=== PATIENT | female | born 1945 | race Caucasian/White ===

== ENCOUNTER 2021-08-17 11:48 | Inpatient (IN) | payer MEDICARE, SELFPAY ==
[2021-08-17] VITALS (13 sets, daily range): BP systolic 120–237; BP diastolic 61–153; PULSE 71–109; RESP 18–27; TEMP 36.7–36.9; O2SAT 89–96; BMI 37.8
--- NOTE | 2021-08-17 11:49 | XR_ITS ---
WS: [id number] Exam: XR chest 1V portable [id number] Date/Time of Exam: 08/17/2021 11:53 AM Reason For Exam: dyspnea/cough No priors. Patchy groundglass infiltrates seen in the left lung base. Plaque atelectasis in the right base. Smal l left basal pleural effusion noted. Heart size is normal. Pulmonary vascularity is increased. The me diastinum is normal in contour. Regional bony elements are intact. Monitoring leads superimpose the c hest. XR/XR chest 1V portable [id number] IMPRESSION: 1. Left lower lobe infiltrate and small left basal pleural effusion. 2. Increased pulmonary vascularity. Plaque atelectasis in the right base.
--- NOTE | 2021-08-17 11:51 | ECG_ITS ---
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 Measurements Intervals [place] Rate: 93 P: 28 [place]: 157 QRS: 12 QRSD: 104 T: 30 QT: 345 QTc: 431 Interpretive Statements SINUS RHYTHM No previous ECG available for comparison Electronically Signed On 08-17-2021 15:21:06 CDT by Bob Lombardi M.D. [id number] f
[2021-08-17] MEDS: FUROsemide 10 mg/mL SDV 10mL 60 MG IVP (12:19)
--- NOTE | 2021-08-17 12:26 | ED_ITS ---
HPI - Chest Pain General: Chief Complaint: Chest Pain Stated Complaint: sob Time Seen by Provider: 08/17/21 11:49 Source: patient Mode of arrival: ambulatory History of Present Illness: 75-year-old female who presents to the emergency room via EMS with complaints of shortness of breath and difficulty breathing. She states she is having progressive worsening for the last several weeks which she has noticed increasing orthopnea. She is visiting here from [facility]. States she did not take any of her medications today she does usually take 40 mg of Lasix daily. States she has a history of COPD. complaint: chest heaviness and chest discomfort Onset (ago): day(s) Timing of current episode: episodic Prior episodes: Yes Onset: during rest Pain location: substernal and left chest Pain radiation: none Severity: mild Quality: heaviness Relieving factors: sitting upright Exacerbating factors: exertion and supine Associated symptoms: Reports dyspnea and leg edema; Deny abdominal pain, diaphoresis, fever(s), nausea, palpitations, sense of impending doom, syncope or vomiting Treatment prior to arrival: oxygen and other (DuoNebs) Review of Systems Const: Denies: fever(s), chills or diaphoresis ENMT: Denies: throat pain, ear or mastoid pain, nasal discharge or nasal congestion Card: Reports: chest pain, dyspnea on exertion and orthopnea; Denies: palpitations or syncope Resp: Reports: dyspnea, non-productive cough and wheezing GI: Denies: abdominal pain, nausea or vomiting : Denies: flank pain, difficulty voiding, dysuria, urinary frequency or urinary urgency Skin/Breast: Denies: rash or pruritus PFSH ED PFSH: Medical History (Updated 08/28/21 @ 19:30 by Rick Clarke DO) Anxiety CAD (coronary artery disease) CHF (congestive heart failure) COPD (chronic obstructive pulmonary disease) Depression Diabetes Hyperlipemia DONAVAN (obstructive sleep apnea) Surgical History H/O elbow surgery Hx of cataract surgery Stented coronary artery Family History Father CAD (coronary artery disease) Social History (Reviewed 08/17/21 @ 17:52 by KALEN Cummins Smoking and tobacco status: never smoked Second hand smoke exposure: Yes Smoking risk assessment/counseling performed?: No Alcohol intake: never Desire information about alcohol rehabilitation?: No Counseling given: No Desire information about substance/drug rehabilitation?: No Counseling given: No Lives independently: Yes Household members: spouse Marital status: Physical Exam Const: GENERAL APPEARANCE: cooperative and comfortable OR IENTATION/CONSCIOUSNESS: Yes awake, Yes oriented to person, Yes oriented to place and Yes oriented to time HENMT: COMMON NORMALS: normocephalic, atraumatic and hearing grossly normal bilaterally HEAD & SCALP: normocephalic and atraumatic Resp: EFFORT & INSPECTION: Yes abnormal respiratory pattern, Yes tachypneic, Yes pursed lip breathing and Yes labored AUSCULTATION: rhonchi and wheezes Cardio: COMMON NORMALS: regular rhythm and No murmurs present (Cardio) RHYTHM: regular rhythm GI: COMMON NORMALS: Soft to palpation and No hepatosplenomegaly present AUSCULTATION: Yes normoactive bowel sounds PALPATION: Yes Soft to palpation, No Tenderness to palpation present (GI), No Guarding due to palpation present (GI) and Yes No hepatosplenomegaly present Extremity: COMMON NORMALS: capillary refill normal and no calf tenderness GENERAL: Yes edema Neuro: SENSORIUM/ORIENTATION: Yes oriented to person, Yes oriented to place and Yes oriented to time Skin: COMMON NORMALS: no rashes or lesions noted GENERAL SKIN EXAM: no ra shes or lesions noted Course Vital Signs: Vital signs: Vital Signs Temperature 97.8 F 08/21/21 11:32 Pulse Rate 50 L 08/21/21 17:09 Respiratory Rate 11 L 08/21/21 17:09 Blood Pressure 105/65 08/21/21 17:09 Pulse Oximetry 99 08/21/21 17:09 MDM - Chest Pain Medical Decision Making Acute exacerbation of COPD with hypoxic and hypercapnic respiratory failure cover with antibiotics his chest x-ray looks like she may have pneumonia additionally continue BiPAP discussed with hospitalist orders written Medical Records I reviewed the patient's medical records. Lab Data I reviewed the patient's lab results. : 08/21/21 04:45 08/21/21 04:45 Radiology Impressions Chest X-Ray 08/21/21 08:50 IMPRESSION: Similar patchy left basilar airspace opacity with small left pleural effusion. Laboratory Results WBC 12.8 10^3/uL (4.0-10.0) H 08/17/21 15:24 RBC 3.95 10^6/uL (4.1-5.3) L 08/17/21 15:24 Hgb 10.0 g/dL (11.5-15.3) L 08/17/21 15:24 Hct 31.3 % (37.0-47.0) L 08/17/21 15:24 MCV 79.2 fl (81-99) L 08/17/21 15:24 MCH 25.3 pg (28.0-34.0) L 08/17/21 15:24 MCHC 31.9 g/dL (30.0-36.0) 08/17/21 15: RDW 15.7 % (12.1-15.1) H 08/17/21 15:24 Plt Count 245 10^3/cmm (130-400) 08/17/21 15: MPV 11.7 fL (7.4-10.4) H 08/17/21 15:24 Neut % (Auto) 91.1 % 08/17/21 15:24 Lymph % (Auto) 5.2 % 08/17/21 15:24 [place] % (Auto) 1.5 % 08/17/21 15: Eos % (Auto) 0.2 % 08/17/21 15:24 Baso % (Auto) 0.5 % 08/17/21 15:24 Neut # (Auto) 11.64 10^3/uL (1.8-7.7) H 08/17/21 15:24 Lymph # (Auto) 0.7 10^3/uL (0.8-4.8) L 08/17/21 15:24 [place] # (Auto) 0.2 10^3/uL (0.2-0.9) 08/17/21 15:24 Eos # (Auto) 0.0 10^3/uL (0.0-0.8) 08/17/21 15:24 Baso # (Auto) 0.1 10^3/uL (0.0-0.1) 08/17/21 15:24 Nucleated RBC % (auto) 0 % 08/17/21 15:24 Nucleated RBCs # 0.0 /100WBC 08/17/21 15:24 Specimen Type Arterial 08/17/21 12:27 Sample Site Brachial, right 08/17/21 12:27 ABG pH 7.29 (7.35-7.45) L 08/17/21 12:27 ABG pCO2 57.6 mmHg (35-45) H 08/17/21 12:27 ABG pO2 66.0 mmHg (80.0-100.0) L 08/17/21 12:27 ABG HCO3 27.6 mmol/L (22-26) H 08/17/21 12:27 ABG O2 Saturation 89.5 08/17/21 12:27 ABG Base Excess 0.3 mmol/L (-2.0-2.0) 08/17/21 12:27 [place] Test N/a 08/17/21 12:27 A-a O2 Gradient 15.8 mmHg (5-10) H 08/17/21 12:27 Hematocrit 30.9 % (37-47) L 08/17/21 12:27 Hgb O2 Saturation 87.7 % (95-100) L 08/17/21 12:27 Carboxyhemoglobin 1.5 %THgb (0.4-20.1) 08/17/21 12:27 Methemoglobin 0.4 % (0.4-1.5) 08/17/21 12:27 Total Hemoglobin 10.1 g/dL (12-16) L 08/17/21 12:27 Sodium 140.0 mmol/L (131-143) 08/17/21 12:27 Potassium 4.6 mmol/L (3.5-5.0) 08/17/21 12:27 Glucose 101.0 mg/dL (70-115) 08/17/21 12:27 Ionized Calcium 1.2 mmol/L (1.1-1.4) 08/17/21 12:27 O2 Delivery Device Nc 08/17/21 12:27 O2 Liters/Min 4.0 % 08/17/21 12:27 FiO2 36.0 % 08/17/21 12:27 Dispatcher Service Or Work ID Amh 08/17/21 12:27 Sodium 135 mmol/L (136-145) L 08/17/21 15:24 Potassium 4.8 mmol/L (3.5-5.1) 08/17/21 15:24 Chloride 100 mmol/L (98-107) 08/17/21 15:24 Carbon Dioxide 21 mmol/L (22-29) L 08/17/21 15:24 Anion Gap 18.8 (5-19) 08/17/21 15:24 BUN 18 mg/dL (8-23) 08/17/21 15:24 Creatinine 0.7 mg/dL (0.5-0.9) 08/17/21 15:24 GFR Calculation Not Reportable 08/17/21 15:24 Glucose 128 mg/dL (65-115) H 08/17/21 15:24 Calculated Osmolality 284 mOsm/kg (285-295) L 08/17/21 15:24 Calcium 8.8 mg/dL (8.5-10.5) 08/17/21 15:24 Total Bilirubin 0.3 mg/dL (0.15-1.2) 08/17/21 15:24 AST 13 U/L (0-32) 08/17/21 15:24 ALT 12 U/L (0-33) 08/17/21 15:24 Alkaline Phosphatase 106 IU/L (35-105) H 08/17/21 15:24 Troponin T Baseline 16 ng/L (0-10) H 08/17/21 15:24 NT-Pro-B Natriuret Pep 1621 pg/mL (0-450) H 08/17/21 15:24 Total Protein 7.2 g/dL (6.6-8.7) 08/17/21 15:24 Albumin 3.8 g/dL (3.5-5.2) 08/17/21 15:24 Globulin 3.4 g/dL (1.3-4.6) 08/17/21 15:24 Discharge Plan Discharge Patient Disposition: Admitted As Inpatient Admit Provider: Jon Hilario Clinical Impression: Acute on chronic respiratory failure with hypoxia and hypercapnia, Pneumonia, Congestive heart failure Condition: Stable Discharge Diet: Cardiac and Diabetic Discharge Activity: Increase activity as tolerated, As per PT/OT instructions, Oxygen as instructed and Cpap/Bipap as instructed Coding Level of Care Code ED Online Advertising Manager for Chg Fwd Exam Detailed
[2021-08-17 12:38] LABS: ABG PCO2 57.6 mmHg (35-45); ABG PH Result 7.29 (7.35-7.45); Alveolar-Arterial Oxygen Gradi 15.8 mmHg (5-10); Arterial Blood Gas Hematocrit 30.9 % (37-47); Base Excess ABG 0.3 mmol/L (-2.0-2.0); Blood Gas Operator Identificat AMH; Blood Gas Sample Site Brachial, right; Blood Gas Sample Type Arterial; Carboxyhemoglobin 1.5 %THgb (0.4-20.1); HCO3 ABG 27.6 mmol/L (22-26); HGB O2 Sat 87.7 % (95-100); Ionized Calcium Level - ABG 1.2 mmol/L (1.1-1.4); Methemoglobin 0.4 % (0.4-1.5); Oxygen Device NC; Oxygen Saturation ABG 89.5; Potassium Level - ABG 4.6 mmol/L (3.5-5.0); Total Hemoglobin 10.1 g/dL (12-16)
[2021-08-17] MEDS: hyDRALAzine 20 mg/mL INJ 1 mL IVP (13:02)
--- NOTE | 2021-08-17 14:13 | ECG_ITS ---
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 Measurements Intervals [place] Rate: 85 P: 31 [place]: 157 QRS: 11 QRSD: 99 T: 31 QT: 370 QTc: 442 Interpretive Statements SINUS RHYTHM Compared to ECG 08/17/2021 11:53:21 No significant changes Electronically Signed On 08-17-2021 15:25:38 CDT by Bob Lombardi M.D. [id number]
--- NOTE | 2021-08-17 14:14 | PC.NURSE ---
EKG done and shown to ER doctor
[2021-08-17 15:39] LABS: Basophils # 0.1 10^3/uL (0.0-0.1); Basophils % 0.5 %; Eosinophils % 0.2 %; Hematocrit 31.3 % (37.0-47.0); Lymphocytes # 0.7 10^3/uL (0.8-4.8); Lymphocytes % 5.2 %; Mean Corpuscular HGB Conc 31.9 g/dL (30.0-36.0); Mean Corpuscular Hemoglobin 25.3 pg (28.0-34.0); Mean Corpuscular Volume 79.2 fl (81-99); Mean Platelet Volume 11.7 fL (7.4-10.4); Monocytes # 0.2 10^3/uL (0.2-0.9); Monocytes % 1.5 %; Neutrophils # 11.64 10^3/uL (1.8-7.7); Neutrophils % 91.1 %; Nucleated Red Blood Cells % 0 %; Platelet Count 245 10^3/cmm (130-400); Red Blood Count 3.95 10^6/uL (4.1-5.3); Red Cell Distribution Width 15.7 % (12.1-15.1); White Blood Count 12.8 10^3/uL (4.0-10.0)
[2021-08-17 16:08] LABS: Alanine Aminotransferase 12 U/L (0-33); Albumin Level 3.8 g/dL (3.5-5.2); Alkaline Phosphatase 106 IU/L (35-105); Anion Gap 18.8 (5-19); Aspartate Amino Transferase 13 U/L (0-32); Blood Urea Nitrogen 18 mg/dL (8-23); Calcium 8.8 mg/dL (8.5-10.5); Carbon Dioxide 21 mmol/L (22-29); Chloride 100 mmol/L (98-107); Creatinine Clr Calc Pharmacy 67.6218; Globulin 3.4 g/dL (1.3-4.6); Glucose 128 mg/dL (65-115); NT Pro B Type Natriuretic Pept 1621 pg/mL (0-450); Osmolality Calculated 284 mOsm/kg (285-295); Potassium 4.8 mmol/L (3.5-5.1); Sodium 135 mmol/L (136-145); Total Bilirubin 0.3 mg/dL (0.15-1.2); Total Protein 7.2 g/dL (6.6-8.7)
[2021-08-17 16:09] LABS: Troponin(5th) Baseline 16 ng/L (0-10)
[2021-08-17] MEDS: levofloxacin-dextrose 5 % 750 MG/150 ML PREMIX 100 MG IV (16:33)
--- NOTE | 2021-08-17 17:39 | P.HP_ITS ---
Providers/Chief Complaint Primary Care Provider: LEWIS Thomas Chief Complaint: sob History of Present Illness Very pleasant 75-year-old lady with history of COPD, chronically on 2 L of oxygen nasal cannula, nightly on CPAP due to DONAVAN, he is visiting here from [place] where she normally lives with her , did not bring her oxygen, and has been progressively getting more short of breath to the point that she has not been able to make it to the bathroom with exertion, has been having productive cough, in emergency room found to require more oxygen than usual, with respiratory acidosis, 7.29/37.6/66 on 4 L nasal cannula, was started on BiPAP support. Chest imaging showing left lower lobe infiltrate and small left basal pleural effusion. Increased pulmonary vascularity. Black atelectasis in right base. She denies significant lower extremity edema for which she takes Lasix. Denies chest pain or pressure with exertion, although says did have feeling of elephant sitting on her lower chest while watching TV. No such feeling currently. Reports has history of coronary disease with stenting x2. Review of Systems Const: Denies: fever(s), chills, body aches or malaise Eyes: Denies: change in vision, eye discomfort or eye redness ENMT: Denies: throat pain, oral sores or ear or mastoid pain Card: Reports: edema, dyspnea on exertion and other (chest heaviness episode at rest); Denies: chest pain or pre-syncope Resp: Reports: dyspnea, productive cough and pain on inspiration; Denies: change in phlegm color or hemoptysis GI: Denies: abdominal pain, nausea, vomiting, diarrhea, constipation, hematochezia or melena : Denies: flank pain, urinary frequency or hematuria Musc: Denies: back pain, joint swelling or joint redness Skin/Breast: Denies: rash or new lesions Neuro: Denies: headache(s), numbness in extremities, weakness in extremities, dizziness, confusion or seizure-like activity Endo: Denies: polyuria or polydipsia John/Lymph: Denies: easy bleeding or tender lymph nodes All/Imm: Denies: urticaria or tongue swelling Medications/Allergies Home Medications Medication Instructions Recorded Confirmed Last Taken Type albuterol sulfate 90 mcg/actuation 1 inh INHALATION QID PRN 12/10/19 08/17/21 Unknown History aerosol inhaler (ProAir HFA) atorvastatin 40 mg tablet 40 mg PO DAILY 12/10/19 08/17/21 08/16/21 History bupropion HCl 150 mg tablet,12 hr 150 mg PO BID 12/10/19 08/17/21 08/16/21 History sustained-release (Wellbutrin SR) celecoxib 200 mg capsule (Celebrex) 200 mg PO DAILY 12/10/19 08/17/21 08/16/21 History furosemide 40 mg tablet (Lasix) 40 mg PO DAILY 12/10/19 08/17/21 08/16/21 History gabapentin 600 mg tablet 600 mg PO TID 12/10/19 08/17/21 08/16/21 History lansoprazole 30 mg capsule,delayed 30 mg PO DAILY 12/10/19 08/17/21 08/16/21 History release lisinopril 40 mg tablet 40 mg PO DAILY 12/10/19 08/17/21 08/16/21 History metformin 500 mg tablet 500 mg PO BID 12/10/19 08/17/21 08/16/21 History metoprolol tartrate 50 mg tablet 50 mg PO BID 12/10/19 08/17/21 08/16/21 History potassium chloride 10 mEq 10 meq PO DAILY 12/10/19 08/17/21 08/16/21 History tablet,extended release(part/cryst) (Klor-Con M) zolpidem 10 mg tablet 10 mg PO BEDTIME PRN 12/10/19 08/17/21 Unknown History folic acid 1 mg tablet 1 mg PO DAILY 08/17/21 08/17/21 08/16/21 History memantine 10 mg tablet 10 mg PO DAILY 08/17/21 08/17/21 08/16/21 History Allergies Allergy/AdvReac Type Severity Reaction Status Date / Time aspirin Allergy Intermediate rash Verified 12/10/19 14:31 red dye Allergy ADR-Itching Verified 08/17/21 11:51 PFSH Acute PFSH: Medical History (Updated 08/17/21 @ 17:57 by Jon Hilario MD) Anxiety CAD (coronary artery disease) COPD (chronic obstructive pulmonary disease) Depression Diabetes Hyperlipemia DONAVAN (obstructive sleep apnea) Surgical History H/O elbow surgery Hx of cataract surgery Stented coronary artery Family History Father CAD (coronary artery disease) Social History Smoking and tobacco status: never smoked Second hand smoke exposure: Yes Smoking risk assessment/counseling performed?: No Alcohol intake: never Desire information about alcohol rehabilitation?: No Counseling given: No Desire information about substance/drug rehabilitation?: No Counseling given: No Lives independently: Yes Household members: spouse Marital status: Vitals/I&O/Wt Last Vital Signs Temp 98.4 F 08/17/21 12:04 Pulse 71 08/17/21 15:47 Resp 18 08/17/21 15:15 BP 120/62 08/17/21 15:15 Pulse Ox 91 08/17/21 15:47 Weight last 48 hrs Weight 99.79 kg Physical Exam Narrative: BiPAP Const: COMMON NORMALS: alert GENERAL APPEARANCE: cooperative NUTRITIONAL APPEARANCE: obese ORIENTATION/CONSCIOUSNESS: Yes awake HENMT: COMMON NORMALS: normocephalic, EAC's normal, Normal external nose present and moist oral mucous membranes HEAD & SCALP: normocephalic NOSE: Normal external nose present EXTERNAL AUDITORY CANAL: EAC's normal Neck/C-Spine: COMMON NORMALS: no meningeal signs Chest: CHEST: Yes Symmetrical chest wall rise Resp: AUSCULTATION: diminished lung sounds Cardio: COMMON NORMALS: regular rate, regular rhythm and No murmurs present (Cardio) RATE: regular rate RHYTHM: regular rhythm GI: COMMON NORMALS: Normal to inspection, nondistended, normoactive bowel sounds present, Soft to palpation and non-tender PALPATION: Yes Soft to palpation Extremity: COMMON NORMALS: no pedal edema Neuro: COMMON NORMALS: moves all extremities SENSORIUM/ORIENTATION: Yes alert MENINGEAL SIGNS: Yes no meningeal signs Psych: COMMON NORMALS: mental status grossly normal Skin: COMMON NORMALS: no wounds RASHES: no rashes Data : 08/17/21 15:24 08/17/21 15:24 A&P Assessment and plan (1) Respiratory failure with hypoxia and hypercapnia: COPD exacerbation and community-acquired pneumonia. Continue BiPAP support. Wean off as tolerating. Normally on 2 L oxygen, here now requiring at least 4. Continue Levaquin, breathing treatments, discussed with her also IV steroid. Collect sputum culture, bacterial antigens. Check COVID-19. Status: Acute (2) CAP (community acquired pneumonia): As above Status: Acute (3) Respiratory acidosis: As above Status: Acute (4) CHF (congestive heart failure): Lasix. Assess TTE. Complete troponin EKG series. Status: Acute (5) Chest heaviness: Atypical chest discomfort at home while resting, more so pleuritic discomfort, but at one time did feel like an elephant was sitting on her chest. Has not been using her oxygen which she did not bring with her from [place]. Possibly secondary to hypoxia. Does have history of CAD. Complete troponin EKG series. Assess TTE. Continue cardiac medications. Status: Acute (6) DONAVAN (obstructive sleep apnea): At home usually uses CPAP Status: Acute Plan Diabetes HLD CAD Attestations Medical Necessity Statement*: Admission of over 2 midnights is anticipated for assessment and management of respiratory failure with hypoxia and hypercapnia, community-acquired pneumonia and COPD exacerbation, additional assessment of episode of chest heaviness in a lady with underlying CAD. Coding Level of Care Code Acute Precision Lens Generator for [facility] Fwd Diagnoses Respiratory failure with hypoxia and hypercapnia J96.91; J96.92 DONAVAN (obstructive sleep apnea) G47.33 CAP (community acquired pneumonia) J18.9 Respiratory acidosis E87.2 CHF (congestive heart failure) I50.9 Chest heaviness R07.89
[2021-08-17 18:13] LABS: Troponin 5 2HR 14.17 ng/L (0-10)
--- NOTE | 2021-08-17 18:13 | ECG_ITS ---
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 Measurements Intervals [place] Rate: 90 P: 38 [place]: 147 QRS: 11 QRSD: 100 T: 16 QT: 370 QTc: 455 Interpretive Statements SINUS RHYTHM POSSIBLE ANTERIOR MYOCARDIAL INFARCTION , PROBABLY OLD [30 ms Q WAVE IN V3/V4, OR R < 0.2 mV IN V4] Compared to ECG 08/17/2021 14:08:38 Myocardial infarct finding now present Electronically Signed On 08-18-2021 17:03:11 CDT by Korey Grace M.D. [id number]
[2021-08-17 18:16] LABS: Troponin 5 2HR Delta -1.83 ABS# (0-10)
--- NOTE | 2021-08-17 20:50 | PC.NURSE ---
Patient gave permission to give information to
[2021-08-17 21:05] LABS: Adenovirus Not Detected (NOT DETECT); Chlamydia Pneumoniae Not Detected (NOT DETECT); Coronavirus 229E,HKU1,NL63,OC4 Not Detected (NOT DETECT); Human Metapneumovirus Not Detected (NOT DETECT); Human Rhinovirus/Enterovirus Not Detected (NOT DETECT); Influenza A Not Detected (NOT DETECT); Influenza A H1 Not Detected (NOT DETECT); Influenza A H1-2009 Not Detected (NOT DETECT); Influenza A H3 Not Detected (NOT DETECT); Influenza B Not Detected (NOT DETECT); Mycoplasma Pneumoniae Not Detected (NOT DETECT); Parainfluenza Virus Type 1 Not Detected (NOT DETECT); Parainfluenza Virus Type 2 Not Detected (NOT DETECT); Parainfluenza Virus Type 3 Not Detected (NOT DETECT); Parainfluenza Virus Type 4 Not Detected (NOT DETECT); Respiratory Syncytial Virus A Not Detected (NOT DETECT); Respiratory Syncytial Virus B Not Detected (NOT DETECT); SARS-COV-2 Not Detected (NOT DETECT)
[2021-08-17] MEDS: pantoprazole DR 40 mg Tablet PO (21:33)
[2021-08-17] MEDS: enoxaparin 40 mg/0.4 mL Syringe SUBCUT (21:33)
[2021-08-17] MEDS: cetirizine 10 mg Tablet PO (21:33)
[2021-08-17] MEDS: gabapentin 300 mg Capsule 600 MG PO (21:33)
[2021-08-17] MEDS: acetaminophen 325 mg Tablet 650 MG PO (21:34)
[2021-08-17] MEDS: ipratropium-albuterol 3 mL Neb INHALATION (22:12)
[2021-08-17 22:26] LABS: Troponin 5 6HR 12.58 ng/L (0-10)
[2021-08-17 22:32] LABS: Troponin 5 6HR Delta -3.42 ng/L (0-12)
[2021-08-18] VITALS (18 sets, daily range): BP systolic 119–157; BP diastolic 57–84; PULSE 62–92; RESP 17–20; TEMP 36.4–37.4; O2SAT 89–97
[2021-08-18] MEDS: ipratropium-albuterol 3 mL Neb INHALATION ×4 (02:17→20:49)
--- NOTE | 2021-08-18 02:21 | USCV_ITS ---
Kendal Felix Age: 75 Gender: F : 1945 Exam Date: 08/18/2021 02:20 Ordering Phys: Jon Hilario MD Technologist: ALCIRA [place] [facility] [place]: CHF / Resp Failure BP: / HR: 76 Rhythm: Sinus Technical Quality: Adequate MEASUREMENTS (Male / Female) Normal Values 2D ECHO LV Diastolic Diameter PLAX 3.6 cm 4.2 - 5.9 / 3.9 - 5.3 cm LV Systolic Diameter PLAX 2.3 cm IVS Diastolic Thickness 1.5 cm 0.6 - 1.0 / 0.6 - 0.9 cm IVS Systolic Thickness 1.7 cm LVPW Diastolic Thickness 2.1 cm 0.6 - 1.0 / 0.6 - 0.9 cm LVPW Systolic Thickness 2.2 cm LVOT Diameter 1.8 cm LV Ejection Fraction 2D Teich 70.7 % LA Diameter 4.2 cm LA Width 3.4 cm LA Height 4.9 cm RA Width 4.1 cm RA Height 4.7 cm Aorta at Sinotubular Diameter 2.4 cm IVC Diameter 2.3 cm M-MODE Aortic Annulus Diameter 2.1 cm LA Ao Ratio MM 1.9 DOPPLER AV Peak Velocity 126.0 cm/s LVOT Peak Velocity 89.0 cm/s AV Area Cont Eq vti 1.6 cm squared AV Area Cont Eq pk 1.8 cm squared MV Peak Velocity 99.0 cm/s MV Area PHT 3.7 cm squared Mitral E to A Ratio 0.8 MV E' Velocity 41.0 cm/s Mitral E to MV E' Ratio 11.3 Mitral E to LV E' Lateral Ratio 14.0 Mitral E to LV E' Septal Ratio 9.6 TR Peak Velocity 243.8 cm/s TR Peak Gradient 23.8 mmHg TR Mean Velocity 170.3 cm/s TR Mean Gradient 14.1 mmHg TR Velocity Time Integral 73.8 cm Right Atrial Pressure 10.0 mmHg Pulmonary Artery Systolic Pressu 33.8 mmHg PV Peak Velocity 121.0 cm/s RV Acceleration Time 0.1 s RV Ejection Time 0.3 s RV AcT/ET 0.3 FINDINGS Left Ventricle This is technically very limited quality echocardiogram because of poor ultrasonic windows. Grossly LV systolic function is grossly normal. Accurate assessment of regional wall motion abnormalities cannot be done because of limited visualization Right Ventricle Not well-visualized Right Atrium Not well-visualized Left Atrium Not well-visualized Mitral Valve Not well-visualized Aortic Valve Not well-visualized Tricuspid Valve Not well-visualized. Trace tricuspid regurgitation Pulmonic Valve Not visualized Pericardium Grossly normal Aorta Grossly normal IVC CONCLUSIONS This is technically very limited quality echocardiogram because of poor ultrasonic windows. LV systolic function is grossly normal. Accurate assessment of regional wall motion abnormalities cannot be done because of limited visualization. Weighted structures are not well visualized. No comparison studies are available Korey Grace MD (Electronically Signed) Final Date: 18 August 2021 16:45 S
[2021-08-18] MEDS: FUROsemide 10 mg/mL SDV 4mL 40 MG IVP ×2 (03:19→16:45)
[2021-08-18 06:35] LABS: Basophils % 0.2 %; Hematocrit 31.2 % (37.0-47.0); Hemoglobin 9.2 g/dL (11.5-15.3); Lymphocytes # 0.6 10^3/uL (0.8-4.8); Lymphocytes % 5.2 %; Mean Corpuscular HGB Conc 29.5 g/dL (30.0-36.0); Mean Corpuscular Hemoglobin 25.1 pg (28.0-34.0); Mean Platelet Volume 11.8 fL (7.4-10.4); Monocytes # 0.2 10^3/uL (0.2-0.9); Monocytes % 1.6 %; Neutrophils # 10.24 10^3/uL (1.8-7.7); Neutrophils % 91.4 %; Nucleated Red Blood Cells % 0 %; Platelet Count 252 10^3/cmm (130-400); Red Blood Count 3.67 10^6/uL (4.1-5.3); Red Cell Distribution Width 15.9 % (12.1-15.1); White Blood Count 11.2 10^3/uL (4.0-10.0)
[2021-08-18 06:59] LABS: Alanine Aminotransferase 9 U/L (0-33); Alkaline Phosphatase 93 IU/L (35-105); Aspartate Amino Transferase 12 U/L (0-32); Blood Urea Nitrogen 24 mg/dL (8-23); Calcium 8.2 mg/dL (8.5-10.5); Carbon Dioxide 24 mmol/L (22-29); Chloride 98 mmol/L (98-107); Globulin 2.4 g/dL (1.3-4.6); Glucose 209 mg/dL (65-115); Osmolality Calculated 292 mOsm/kg (285-295); Sodium 136 mmol/L (136-145); Total Bilirubin 0.3 mg/dL (0.15-1.2); Total Protein 6.4 g/dL (6.6-8.7)
[2021-08-18 07:00] LABS: Anion Gap 19.3 (5-19); Potassium 5.3 mmol/L (3.5-5.1)
[2021-08-18] MEDS: pantoprazole DR 40 mg Tablet PO (10:07)
[2021-08-18] MEDS: memantine 5 mg tablet 10 MG PO (10:07)
[2021-08-18] MEDS: atorvastatin 40 mg Tablet PO (10:07)
[2021-08-18] MEDS: metoprolol tartrate 50 mg Tablet PO ×2 (10:07→18:12)
[2021-08-18] MEDS: gabapentin 300 mg Capsule 600 MG PO ×3 (10:08→21:47)
[2021-08-18] MEDS: folic acid 1 mg Tablet PO (10:08)
[2021-08-18] MEDS: buPROPion SR (12 HR) 150 mg Tablet PO ×2 (10:16→18:13)
--- NOTE | 2021-08-18 11:57 | PC.CHAP ---
Pastoral Care Encounter/Spiritual Assessment Type of Contact [] Declined brim rounder visit [] Patient/Family/Request visit [] Outpatient visit [] Follow-up visit [] Physician referral [] Code/Alert [x] Routine visit [] Staff referral [] Actively dying [] Patient sleeping [] Family support [] [] Out of room [] Palliative care [] [] Receiving care in room [] Pre-surgical visit [] Trauma [] Long length of stay [] ICU visit [] Other: Relational/Emotional Strength [x] Patient feels connected with others/family/visitors/staff [] Distress [] Loneliness/isolation [] Abandonment Spirituality of Patient [x] Person of Nury [x] Attends Yarsani of their Nury [x] Believes in Prayer [] Reads Bible or Yazdanism materials [] There are Spiritual issues to be addressed Tip Scourer Interventions [x] Prayer [x] Active listening [x] Non-anxious presence [x] Spiritual/emotional support [] Crisis/trauma care [] Spiritual counseling [] Bereavement support [] Provided bereavement packet [] Provided Bible/devotional materials [] Provided toy/stuffed animal, coloring book to patient or family member [] Provided Communion [] Anointing/[place] [] Salvation [x] Completed spiritual assessment [] Other: Impact on Illness or Injury [] Angry [] Fearful [] Anxious [] Often cries [] Exhaustion [] Unable to work [] Unable to attend tenriism [] Unable to walk/stand [] Unable to read [] Unable to drive [] Unable to eat/drink [] Unable to sleep [] Unable to be with family [] Patient intubated [] Other: Summary Time spent with patient
[2021-08-18] MEDS: levofloxacin-dextrose 5 % 750 MG/150 ML PREMIX 100 MG IV (15:15)
--- NOTE | 2021-08-18 17:57 | P.PN_ITS ---
Subjective Subjective: Today she is feeling a little bit better. Transitioned off of BiPAP to nasal cannula. Requesting advancement of diet. She still coughing. No nausea or vomiting. Vitals/I&O/Wt Last Vital Signs Temp 97.8 F 08/18/21 15:40 Pulse 75 08/18/21 15:40 Resp 18 08/18/21 15:40 BP 129/60 08/18/21 15:40 Pulse Ox 91 08/18/21 15:40 08/18/21 08/18/21 08/18/21 06:59 14:59 22:59 Intake Total 720 / 720 150 / 870 Output Total 1150 / 1150 1600 / 1600 Balance -1150 / -1000 -880 / -880 150 / -730 Weight last 48 hrs Weight 108.635 kg Weight 99.79 kg Physical Exam Const: COMMON NORMALS: alert GENERAL APPEARANCE: cooperative NUTRITIONAL APPEARANCE: obese ORIENTATION/CONSCIOUSNESS: Yes awake HENMT: COMMON NORMALS: normocephalic, EAC's normal, Normal external nose present and moist oral mucous membranes HEAD & SCALP: normocephalic NOSE: Normal external nose present EXTERNAL AUDITORY CANAL: EAC's normal Neck/C-Spine: COMMON NORMALS: no meningeal signs Chest: CHEST: Yes Symmetrical chest wall rise OTHER: Better air entry, diminished on L Resp: AUSCULTATION: diminished lung sounds Cardio: COMMON NORMALS: regular rate, regular rhythm and No murmurs present (Cardio) RATE: regular rate RHYTHM: regular rhythm GI: COMMON NORMALS: Normal to inspection, nondistended, normoactive bowel sounds present, Soft to palpation and non-tender PALPATION: Yes Soft to palpation Extremity: COMMON NORMALS: no pedal edema Neuro: COMMON NORMALS: moves all extremities SENSORIUM/ORIENTATION: Yes alert MENINGEAL SIGNS: Yes no meningeal signs Psych: COMMON NORMALS: mental status grossly normal Skin: COMMON NORMALS: no wounds RASHES: no rashes Data : 08/18/21 05:23 08/18/21 05:23 Micro: Microbiology 08/17/21 21:18 MRSA Culture - Final Nose 08/18/21 04:50 Legionella Urinary Antigen - Final Urine,Voided Bacterial Antigens - Final A&P Assessment and plan (1) Respiratory failure with hypoxia and hypercapnia: Feeling bit better. Slightly better air entry on exam. Transition to 6 L nasal cannula oxygen from BiPAP. Decrease steroid. Urine bacterial antigens negative including Legionella. MRSA PCR negative. Negative COVID PCR. COPD exacerbation and community-acquired pneumonia. Normally on 2 L oxygen, here now requiring at least 4. Continue Levaquin, breathing treatments, IV steroid. Trial of advancement of diet Status: Acute (2) CAP (community acquired pneumonia): As above Status: Acute (3) Respiratory acidosis: As above Status: Acute (4) CHF (congestive heart failure): Lasix. Monitor I&O. Very limited quality TTE. No further chest pain or pressure. Troponin series without rise. Noncontributory EKG. Status: Acute (5) Chest heaviness: Atypical chest discomfort at home while resting, more so pleuritic discomfort, but at one time did feel like an elephant was sitting on her chest. Has not been using her oxygen which she did not bring with her from [place]. Possibly secondary to hypoxia. Does have history of CAD. Discussed with her consideration of possible stress testing after recovers from acute illness. Last time she had a stress test was about 3 years ago. Status: Acute (6) DONAVAN (obstructive sleep apnea): At home usually uses CPAP Status: Acute Plan Hyperkalemia: Change diet to low potassium. Hold lisinopril. Hold potassium supplement. Follow-up potassium level. Diabetes HLD CAD Attestations Medical Necessity Statement*: Continue admission for assessment of management of community-acquired pneumonia and severe COPD exacerbation. Coding Level of Care Code Acute Bilingual Inside Sales Representative for [facility] Fwd Exam Comprehensive Diagnoses Respiratory failure with hypoxia and hypercapnia J96.91; J96.92 CAP (community acquired pneumonia) J18.9 Respiratory acidosis E87.2 CHF (congestive heart failure) I50.9 Chest heaviness R07.89 DONAVAN (obstructive sleep apnea) G47.33
[2021-08-18] MEDS: enoxaparin 40 mg/0.4 mL Syringe SUBCUT (21:46)
[2021-08-18] MEDS: cetirizine 10 mg Tablet PO (21:47)
[2021-08-18 22:20] LABS: Glucose Point of Care 161 mg/dL (70-110)
[2021-08-19] VITALS (16 sets, daily range): BP systolic 109–177; BP diastolic 58–92; PULSE 61–93; RESP 14–24; TEMP 36.6–37.2; O2SAT 90–96
[2021-08-19] MEDS: acetaminophen 325 mg Tablet 650 MG PO (02:30)
[2021-08-19] MEDS: ipratropium-albuterol 3 mL Neb INHALATION ×3 (02:36→20:46)
[2021-08-19 05:15] LABS: Basophils % 0.1 %; Hematocrit 29.2 % (37.0-47.0); Hemoglobin 8.7 g/dL (11.5-15.3); Lymphocytes # 0.9 10^3/uL (0.8-4.8); Lymphocytes % 7.6 %; Mean Corpuscular HGB Conc 29.8 g/dL (30.0-36.0); Mean Corpuscular Hemoglobin 24.9 pg (28.0-34.0); Mean Corpuscular Volume 83.7 fl (81-99); Mean Platelet Volume 11.3 fL (7.4-10.4); Monocytes # 0.7 10^3/uL (0.2-0.9); Monocytes % 5.4 %; Neutrophils # 10.51 10^3/uL (1.8-7.7); Neutrophils % 86.1 %; Nucleated Red Blood Cells % 0 %; Platelet Count 298 10^3/cmm (130-400); Red Blood Count 3.49 10^6/uL (4.1-5.3); Red Cell Distribution Width 16.1 % (12.1-15.1); White Blood Count 12.2 10^3/uL (4.0-10.0)
[2021-08-19] MEDS: FUROsemide 10 mg/mL SDV 4mL 40 MG IVP ×2 (05:34→17:22)
[2021-08-19 05:38] LABS: Alanine Aminotransferase 8 U/L (0-33); Albumin Level 3.7 g/dL (3.5-5.2); Alkaline Phosphatase 75 IU/L (35-105); Blood Urea Nitrogen 28 mg/dL (8-23); Carbon Dioxide 28 mmol/L (22-29); Chloride 100 mmol/L (98-107); Globulin 2.9 g/dL (1.3-4.6); Glucose 154 mg/dL (65-115); Osmolality Calculated 297 mOsm/kg (285-295); Sodium 139 mmol/L (136-145); Total Bilirubin 0.2 mg/dL (0.15-1.2); Total Protein 6.6 g/dL (6.6-8.7)
[2021-08-19 05:47] LABS: Anion Gap 16.2 (5-19); Aspartate Amino Transferase 11 U/L (0-32); Potassium 5.2 mmol/L (3.5-5.1)
[2021-08-19 06:59] LABS: Glucose Point of Care 241 mg/dL (70-110)
[2021-08-19] MEDS: metoprolol tartrate 50 mg Tablet PO ×2 (09:20→17:23)
[2021-08-19] MEDS: memantine 5 mg tablet 10 MG PO (09:21)
[2021-08-19] MEDS: pantoprazole DR 40 mg Tablet PO (09:21)
[2021-08-19] MEDS: atorvastatin 40 mg Tablet PO (09:21)
[2021-08-19] MEDS: gabapentin 300 mg Capsule 600 MG PO ×3 (09:21→20:26)
[2021-08-19] MEDS: folic acid 1 mg Tablet PO (09:21)
[2021-08-19] MEDS: buPROPion SR (12 HR) 150 mg Tablet PO ×2 (09:21→17:53)
[2021-08-19 10:58] LABS: Glucose Point of Care 268 mg/dL (70-110)
[2021-08-19] MEDS: levofloxacin-dextrose 5 % 750 MG/150 ML PREMIX 100 MG IV (15:32)
[2021-08-19] MEDS: insulin lispro 100 unit/1 mL SUBCUT ×2 (17:22→21:03)
[2021-08-19 18:00] LABS: Glucose Point of Care 339 mg/dL (70-110)
--- NOTE | 2021-08-19 19:11 | PM.PN ---
Subjective Subjective: She is overall doing slightly better. Subjectively improving, although still needing 6 L nasal cannula oxygen. No recurrence of any chest pain or pressure episodes since admission. Appetite is good, tolerating advanced diet, states had a very good breakfast. Tells me her glucose is not usually this elevated. Vitals/I&O/Wt Last Vital Signs Temp 98.9 F 08/19/21 15:53 Pulse 80 08/19/21 15:53 Resp 14 08/19/21 15:53 BP 145/78 08/19/21 15:53 Pulse Ox 93 08/19/21 15:53 08/19/21 08/19/21 08/19/21 06:59 14:59 22:59 Intake Total 480 / 480 150 / 630 Output Total 600 / 4100 1600 / 1600 Balance -600 / -2870 -1120 / -1120 150 / -970 Weight last 48 hrs Weight 108.771 kg Weight 108.635 kg Physical Exam Narrative: NC Const: COMMON NORMALS: alert GENERAL APPEARANCE: cooperative NUTRITIONAL APPEARANCE: obese ORIENTATION/CONSCIOUSNESS: Yes awake OTHER: Sitting up in bed. Pleasant, conversant. HENMT: COMMON NORMALS: normocephalic, EAC's normal, Normal external nose present and moist oral mucous membranes HEAD & SCALP: normocephalic NOSE: Normal external nose present EXTERNAL AUDITORY CANAL: EAC's normal Neck/C-Spine: COMMON NORMALS: no meningeal signs Chest: CHEST: Yes Symmetrical chest wall rise OTHER: Improving air entry. No wheezing. Resp: AUSCULTATION: diminished lung sounds Cardio: COMMON NORMALS: regular rate, regular rhythm and No murmurs present (Cardio) RATE: regular rate RHYTHM: regular rhythm GI: COMMON NORMALS: Normal to inspection, nondistended, normoactive bowel sounds present, Soft to palpation and non-tender PALPATION: Yes Soft to palpation Extremity: COMMON NORMALS: no pedal edema Neuro: COMMON NORMALS: moves all extremities SENSORIUM/ORIENTATION: Yes alert MENINGEAL SIGNS: Yes no meningeal signs Psych: COMMON NORMALS: mental status grossly normal Skin: COMMON NORMALS: no wounds RASHES: no rashes Data : 08/19/21 04:40 08/19/21 04:40 A&P Assessment and plan (1) Respiratory failure with hypoxia and hypercapnia: Further decrease IV steroid dose to 20 mg. Had to add sliding scale insulin due to significant blood glucose elevation. Continue oxygen support, wean down as tolerating. Urine bacterial antigens negative including Legionella. MRSA PCR negative. Negative COVID PCR. COPD exacerbation and community-acquired pneumonia. Normally on 2 L oxygen. Continue Levaquin, breathing treatments, IV steroid. Status: Acute (2) CAP (community acquired pneumonia): As above Status: Acute (3) Respiratory acidosis: As above Status: Acute (4) CHF (congestive heart failure): Decrease to daily Lasix. Monitor I&O. Very limited quality TTE. No further chest pain or pressure. Troponin series without rise. Noncontributory EKG. Status: Acute (5) Chest heaviness: Atypical chest discomfort at home while resting, more so pleuritic discomfort, but at one time did feel like an elephant was sitting on her chest. Has not been using her oxygen which she did not bring with her from [place]. Possibly secondary to hypoxia. Does have history of CAD. Discussed with her consideration of possible stress testing after recovers from acute illness. Last time she had a stress test was about 3 years ago. Status: Acute (6) DONAVAN (obstructive sleep apnea): At home usually uses CPAP Status: Acute Plan Hyperkalemia: Change diet to low potassium. Hold lisinopril. Hold potassium supplement. Follow-up potassium level. Diabetes HLD CAD Attestations Medical Necessity Statement*: Continue admission for assessment of management of severe COPD distribution and pneumonia with worsening normal hypoxia. Coding Level of Care Code Acute Director Of Medical Education for [facility] Yamil Diagnoses Respiratory failure with hypoxia and hypercapnia J96.91; J96.92 CAP (community acquired pneumonia) J18.9 Respiratory acidosis E87.2 CHF (congestive heart failure) I50.9 Chest heaviness R07.89 DONAVAN (obstructive sleep apnea) G47.33
[2021-08-19] MEDS: cetirizine 10 mg Tablet PO (20:26)
[2021-08-19] MEDS: enoxaparin 40 mg/0.4 mL Syringe SUBCUT (20:26)
[2021-08-19 20:57] LABS: Glucose Point of Care 197 mg/dL (70-110)
[2021-08-20] VITALS (15 sets, daily range): BP systolic 138–167; BP diastolic 72–93; PULSE 60–78; RESP 16–18; TEMP 36.8–37.3; O2SAT 91–97
[2021-08-20] MEDS: ipratropium-albuterol 3 mL Neb INHALATION ×4 (02:35→20:02)
[2021-08-20 04:31] LABS: Basophils % 0.1 %; Hematocrit 30.1 % (37.0-47.0); Hemoglobin 9.1 g/dL (11.5-15.3); Lymphocytes # 1.1 10^3/uL (0.8-4.8); Lymphocytes % 8.9 %; Mean Corpuscular HGB Conc 30.2 g/dL (30.0-36.0); Mean Corpuscular Hemoglobin 25.2 pg (28.0-34.0); Mean Corpuscular Volume 83.4 fl (81-99); Mean Platelet Volume 10.9 fL (7.4-10.4); Monocytes # 0.7 10^3/uL (0.2-0.9); Monocytes % 5.3 %; Neutrophils # 10.81 10^3/uL (1.8-7.7); Neutrophils % 84.8 %; Nucleated Red Blood Cells % 0 %; Platelet Count 293 10^3/cmm (130-400); Red Blood Count 3.61 10^6/uL (4.1-5.3); Red Cell Distribution Width 15.9 % (12.1-15.1); White Blood Count 12.8 10^3/uL (4.0-10.0)
[2021-08-20 04:48] LABS: Alanine Aminotransferase 7 U/L (0-33); Alkaline Phosphatase 73 IU/L (35-105); Anion Gap 12.7 (5-19); Aspartate Amino Transferase 7 U/L (0-32); Blood Urea Nitrogen 30 mg/dL (8-23); Calcium 8.7 mg/dL (8.5-10.5); Carbon Dioxide 32 mmol/L (22-29); Chloride 98 mmol/L (98-107); Globulin 2.5 g/dL (1.3-4.6); Glucose 213 mg/dL (65-115); Osmolality Calculated 299 mOsm/kg (285-295); Potassium 4.7 mmol/L (3.5-5.1); Sodium 138 mmol/L (136-145); Total Bilirubin 0.2 mg/dL (0.15-1.2); Total Protein 6.5 g/dL (6.6-8.7)
[2021-08-20] MEDS: insulin lispro 100 unit/1 mL SUBCUT ×4 (07:39→21:34)
--- NOTE | 2021-08-20 08:06 | PC.SOCIAL ---
IMM updated IMM dated and initialed and copy put in chart and given to patient
[2021-08-20] MEDS: atorvastatin 40 mg Tablet PO (08:56)
[2021-08-20] MEDS: pantoprazole DR 40 mg Tablet PO (08:56)
[2021-08-20] MEDS: gabapentin 300 mg Capsule 600 MG PO ×3 (08:56→20:08)
[2021-08-20] MEDS: buPROPion SR (12 HR) 150 mg Tablet PO ×2 (08:56→17:39)
[2021-08-20] MEDS: folic acid 1 mg Tablet PO (08:56)
[2021-08-20] MEDS: metoprolol tartrate 50 mg Tablet PO ×2 (08:56→17:39)
[2021-08-20] MEDS: memantine 5 mg tablet 10 MG PO (08:56)
[2021-08-20] MEDS: FUROsemide 10 mg/mL SDV 4mL 40 MG IVP (08:58)
[2021-08-20 12:37] LABS: Glucose Point of Care 261 mg/dL (70-110)
[2021-08-20 12:37] LABS: Glucose Point of Care 178 mg/dL (70-110)
[2021-08-20] MEDS: levofloxacin-dextrose 5 % 750 MG/150 ML PREMIX 100 MG IV (14:58)
--- NOTE | 2021-08-20 16:01 | PM.PN ---
Subjective Subjective: She is overall gradually improving. She is still coughing. Worked little bit with physical therapy, feels did not walk very far. No chest pain. Discussed with her echocardiogram unfortunately was not useful due to lack of views. Vitals/I&O/Wt Last Vital Signs Temp 98.7 F 08/20/21 12:00 Pulse 69 08/20/21 15:39 Resp 16 08/20/21 15:39 BP 138/93 08/20/21 12:00 Pulse Ox 94 08/20/21 15:39 08/20/21 08/20/21 08/20/21 06:59 14:59 22:59 Output Total 700 / 3500 Balance -700 / -2270 Weight last 48 hrs Weight 106.367 kg Weight 108.771 kg Physical Exam Narrative: NC Const: COMMON NORMALS: alert GENERAL APPEARANCE: cooperative NUTRITIONAL APPEARANCE: obese ORIENTATION/CONSCIOUSNESS: Yes awake OTHER: Sitting up in bed. Pleasant, conversant. HENMT: COMMON NORMALS: normocephalic, EAC's normal, Normal external nose present and moist oral mucous membranes HEAD & SCALP: normocephalic NOSE: Normal external nose present EXTERNAL AUDITORY CANAL: EAC's normal Neck/C-Spine: COMMON NORMALS: no meningeal signs Chest: CHEST: Yes Symmetrical chest wall rise OTHER: Improving air entry. No wheezing. Resp: AUSCULTATION: diminished lung sounds Cardio: COMMON NORMALS: regular rate, regular rhythm and No murmurs present (Cardio) RATE: regular rate RHYTHM: regular rhythm GI: COMMON NORMALS: Normal to inspection, nondistended, normoactive bowel sounds present, Soft to palpation and non-tender PALPATION: Yes Soft to palpation Extremity: COMMON NORMALS: no pedal edema Neuro: COMMON NORMALS: moves all extremities SENSORIUM/ORIENTATION: Yes alert MENINGEAL SIGNS: Yes no meningeal signs Psych: COMMON NORMALS: mental status grossly normal Skin: COMMON NORMALS: no wounds RASHES: no rashes Data : 08/20/21 04:09 08/20/21 04:09 A&P Assessment and plan (1) Respiratory failure with hypoxia and hypercapnia: Gradually improving. Still needing oxygen supplementation, but down to 4 L. Air entry improved. Decrease steroids further down to 10 mg. Glucose is improving. Continue Levaquin, breathing treatments, IV steroid. Continue oxygen support, wean down as tolerating. Urine bacterial antigens negative including Legionella. MRSA PCR negative. Negative COVID PCR. COPD exacerbation and community-acquired pneumonia. Normally on 2 L oxygen. Therapeutic exercise program after discharge. Status: Acute (2) CAP (community acquired pneumonia): As above Status: Acute (3) Respiratory acidosis: As above Status: Acute (4) CHF (congestive heart failure): Unknown type CHF. Exacerbation on presentation, currently appears compensated. Change to p.o. Lasix. Monitor I&O. Very limited quality TTE. No further chest pain or pressure. Troponin series without rise. Noncontributory EKG. Status: Acute (5) Chest heaviness: Atypical chest discomfort at home while resting, more so pleuritic discomfort, but at one time did feel like an elephant was sitting on her chest. Has not been using her oxygen which she did not bring with her from [place]. Possibly secondary to hypoxia. Does have history of CAD. Discussed with her consideration of possible stress testing after recovers from acute illness. Last time she had a stress test was about 3 years ago. Status: Acute (6) DONAVAN (obstructive sleep apnea): At home usually uses CPAP Status: Acute Plan Hyperkalemia: Change diet to low potassium. Hold lisinopril. Hold potassium supplement. Follow-up potassium level. Diabetes HLD CAD Attestations Medical Necessity Statement*: Continue admission for cyst management of pneumonia, severe exacerbation of COPD, improving hypoxia, CHF. Coding Level of Care Code Acute Priming Powder Premix Blender for [facility] Fwd Diagnoses Respiratory failure with hypoxia and hypercapnia J96.91; J96.92 CAP (community acquired pneumonia) J18.9 Respiratory acidosis E87.2 CHF (congestive heart failure) I50.9 Chest heaviness R07.89 DONAVAN (obstructive sleep apnea) G47.33
[2021-08-20 17:09] LABS: Glucose Point of Care 294 mg/dL (70-110)
[2021-08-20] MEDS: cetirizine 10 mg Tablet PO (20:08)
[2021-08-20] MEDS: enoxaparin 40 mg/0.4 mL Syringe SUBCUT (20:08)
[2021-08-20 21:14] LABS: Glucose Point of Care 337 mg/dL (70-110)
[2021-08-21] VITALS (16 sets, daily range): BP systolic 105–179; BP diastolic 65–86; PULSE 50–80; RESP 11–22; TEMP 36.4–36.6; O2SAT 84–99
[2021-08-21] MEDS: ipratropium-albuterol 3 mL Neb INHALATION ×3 (02:37→14:34)
[2021-08-21 05:01] LABS: Basophils % 0.1 %; Hematocrit 32.6 % (37.0-47.0); Hemoglobin 9.7 g/dL (11.5-15.3); Lymphocytes # 1.3 10^3/uL (0.8-4.8); Lymphocytes % 10.7 %; Mean Corpuscular HGB Conc 29.8 g/dL (30.0-36.0); Mean Corpuscular Hemoglobin 25.1 pg (28.0-34.0); Mean Corpuscular Volume 84.2 fl (81-99); Mean Platelet Volume 10.9 fL (7.4-10.4); Monocytes # 0.6 10^3/uL (0.2-0.9); Monocytes % 5.3 %; Neutrophils # 9.84 10^3/uL (1.8-7.7); Neutrophils % 83.1 %; Nucleated Red Blood Cells % 0 %; Platelet Count 282 10^3/cmm (130-400); Red Blood Count 3.87 10^6/uL (4.1-5.3); Red Cell Distribution Width 15.8 % (12.1-15.1); White Blood Count 11.9 10^3/uL (4.0-10.0)
[2021-08-21 05:20] LABS: Anion Gap 12.5 (5-19); Blood Urea Nitrogen 29 mg/dL (8-23); Calcium 8.8 mg/dL (8.5-10.5); Carbon Dioxide 33 mmol/L (22-29); Chloride 98 mmol/L (98-107); Glucose 234 mg/dL (65-115); Osmolality Calculated 301 mOsm/kg (285-295); Potassium 4.5 mmol/L (3.5-5.1); Sodium 139 mmol/L (136-145)
[2021-08-21 06:57] LABS: Glucose Point of Care 205 mg/dL (70-110)
--- NOTE | 2021-08-21 08:50 | XRR_ITS ---
PROCEDURE INFORMATION: Exam: XR Chest Exam date and time: 08/21/2021 9:07 AM Age: 75 years old Clinical indication: Other: Hypoxia; Prior surgery; Surgery type: Cardiac stents TECHNIQUE: Imaging protocol: XR of the chest. Views: 1 view. COMPARISON: CR XR chest 1V portable [id number] 08/17/2021 11:56 AM FINDINGS: Lungs: Similar patchy left basilar airspace opacity. Pleural spaces: Similar small left pleural effusion. No pneumothorax. Heart/Mediastinum: Unremarkable. No cardiomegaly. Bones/joints: Unremarkable. XR/XR chest 1V portable [id number] IMPRESSION: Similar patchy left basilar airspace opacity with small left pleural effusion.
[2021-08-21] MEDS: atorvastatin 40 mg Tablet PO (09:43)
[2021-08-21] MEDS: gabapentin 300 mg Capsule 600 MG PO ×2 (09:44→16:25)
[2021-08-21] MEDS: FUROsemide 40 mg Tablet PO (09:45)
[2021-08-21] MEDS: metoprolol tartrate 50 mg Tablet PO (09:46)
[2021-08-21] MEDS: buPROPion SR (12 HR) 150 mg Tablet PO (09:46)
[2021-08-21] MEDS: folic acid 1 mg Tablet PO (09:46)
[2021-08-21] MEDS: pantoprazole DR 40 mg Tablet PO (09:46)
[2021-08-21] MEDS: insulin lispro 100 unit/1 mL SUBCUT ×2 (09:48→11:26)
[2021-08-21] MEDS: memantine 5 mg tablet 10 MG PO (09:51)
[2021-08-21 11:07] LABS: Glucose Point of Care 267 mg/dL (70-110)
--- NOTE | 2021-08-21 15:22 | PM.DCS ---
Discharge Providers Date of Admission: 08/17/21 16:33 Date of Discharge: August 21, 2021 Attending Provider at Admission: Jon Hilario Attending Provider at Discharge: Jon Hilario Primary Care Provider: LEWIS Thomas Diagnoses at Discharge Discharge Diagnosis (1) Respiratory failure with hypoxia and hypercapnia: Status: Acute (2) CAP (community acquired pneumonia): Status: Acute (3) Respiratory acidosis: Status: Acute (4) CHF (congestive heart failure): Status: Acute (5) Chest heaviness: Status: Acute (6) DONAVAN (obstructive sleep apnea): Status: Acute Reason for Visit Reason for Visit: sob Hospital Course Hospital Course Pleasant 75-year-old lady with COPD, chronically on 2 L oxygen nasal cannula and nightly CPAP also for DONAVAN, also history of CAD and stenting x2, stays in [place] intermittently, but lives in [place], reports did not bring her oxygen with her here, but has also gotten much more short of breath, including at one point also having chest pain/pressure even while at rest. Has been having productive cough. Noted with acute hypoxic and hypercapnic respiratory failure, with respiratory acidosis, 7.29/57.6/66 on ABG. Was started on BiPAP support at presentation, was started on Levaquin for left lower lung pneumonia noted on x-ray, breathing treatment, steroids, for COPD exacerbation. COVID-19 was checked and was negative. With some increased pulmonary vascularity on chest x-ray initially, also received Lasix. Nasal MRSA, as well as bacterial antigens including Legionella were negative. Was assessed by TTE, but unfortunately study was not diagnostic. Currently does not appear fluid overloaded/CHF, so continues on just the usual home Lasix dose of 40 mg daily. Overall she is continuing to improve. She is weaning down on oxygen requirement to 3 L. Continues on CPAP with sleep. Did well with physical therapy, walked about 100 feet. He is otherwise doing much better, and feels comfortable returning to her home here in [place] temporarily before returning back to [place]. Her son has brought her oxygen. She has remained without chest pain or pressure during the hospitalization. Troponin with minimal elevation without rising trend. EKG without specific changes. She is asked to follow-up with primary provider and discuss to follow-up additionally with further cardiac risk ratification with stress testing after recovering from pneumonia and COPD exacerbation. Physical Exam Narrative: NC Const: COMMON NORMALS: alert GENERAL APPEARANCE: cooperative NUTRITIONAL APPEARANCE: obese ORIENTATION/CONSCIOUSNESS: Yes awake OTHER: Sitting up in bed. Pleasant, conversant. HENMT: COMMON NORMALS: normocephalic, EAC's normal, Normal external nose present and moist oral mucous membranes HEAD & SCALP: normocephalic NOSE: Normal external nose present EXTERNAL AUDITORY CANAL: EAC's normal Neck/C-Spine: COMMON NORMALS: no meningeal signs Chest: CHEST: Yes Symmetrical chest wall rise Resp: COMMON NORMALS: clear to auscultation bilaterally EFFORT & INSPECTION: Yes able to speak in complete sentences AUSCULTATION: clear to auscultation bilaterally Cardio: COMMON NORMALS: regular rate, regular rhythm and No murmurs present (Cardio) RATE: regular rate RHYTHM: regular rhythm GI: COMMON NORMALS: Normal to inspection, nondistended, normoactive bowel sounds present, Soft to palpation and non-tender PALPATION: Yes Soft to palpation Extremity: COMMON NORMALS: no pedal edema Neuro: COMMON NORMALS: moves all extremities SENSORIUM/ORIENTATION: Yes alert MENINGEAL SIGNS: Yes no meningeal signs Psych: COMMON NORMALS: mental status grossly normal Skin: COMMON NORMALS: no wounds RASHES: no rashes Discharge Data Studies Completed and Pending Completed Studies During Hospitalization Category Date Time Status CXRP [XR chest 1V portable [id number]] Routine Exams 08/21/21 08:50 Completed XR chest 1V portable [id number] Stat Exams 08/17/21 11:49 Completed CV. echo wo/w contrast [id number] Routine Ultrasound 08/18/21 02:21 Completed Pending at discharge Category Date Time Status Basic Metabolic Panel AM LABS Lab 08/22/21 04:00 Ordered Basic Metabolic Panel AM LABS Lab 08/23/21 04:00 Ordered Sputum Culture and Gram Stain Routine Lab 08/18/21 18:11 Uncollected Radiology Impressions Chest X-Ray 08/21/21 08:50 IMPRESSION: Similar patchy left basilar airspace opacity with small left pleural effusion. Laboratory Results WBC 11.9 10^3/uL (4.0-10.0) H 08/21/21 04:45 RBC 3.87 10^6/uL (4.1-5.3) L 08/21/21 04:45 Hgb 9.7 g/dL (11.5-15.3) L 08/21/21 04:45 Hct 32.6 % (37.0-47.0) L 08/21/21 04:45 MCV 84.2 fl (81-99) 08/21/21 04:45 MCH 25.1 pg (28.0-34.0) L 08/21/21 04:45 MCHC 29.8 g/dL (30.0-36.0) L 08/21/21 04:45 RDW 15.8 % (12.1-15.1) H 08/21/21 04:45 Plt Count 282 10^3/cmm (130-400) 08/21/21 04:45 MPV 10.9 fL (7.4-10.4) H 08/21/21 04:45 Neut % (Auto) 83.1 % 08/21/21 04:45 Lymph % (Auto) 10.7 % 08/21/21 04:45 Mcduffie % (Auto) 5.3 % 08/21/21 04:45 Eos % (Auto) 0.0 % 08/21/21 04:45 Baso % (Auto) 0.1 % 08/21/21 04:45 Neut # (Auto) 9.84 10^3/uL (1.8-7.7) H 08/21/21 04:45 Lymph # (Auto) 1.3 10^3/uL (0.8-4.8) 08/21/21 04:45 Mcduffie # (Auto) 0.6 10^3/uL (0.2-0.9) 08/21/21 04:45 Eos # (Auto) 0.0 10^3/uL (0.0-0.8) 08/21/21 04:45 Baso # (Auto) 0.0 10^3/uL (0.0-0.1) 08/21/21 04:45 Nucleated RBC % (auto) 0 % 08/21/21 04:45 Nucleated RBCs # 0.0 /100WBC 08/21/21 04:45 Specimen Type Arterial 08/17/21 12:27 Sample Site Brachial, right 08/17/21 12:27 ABG pH 7.29 (7.35-7.45) L 08/17/21 12:27 ABG pCO2 57.6 mmHg (35-45) H 08/17/21 12:27 ABG pO2 66.0 mmHg (80.0-100.0) L 08/17/21 12:27 ABG HCO3 27.6 mmol/L (22-26) H 08/17/21 12:27 ABG O2 Saturation 89.5 08/17/21 12:27 ABG Base Excess 0.3 mmol/L (-2.0-2.0) 08/17/21 12:27 Cortez Test N/a 08/17/21 12:27 A-a O2 Gradient 15.8 mmHg (5-10) H 08/17/21 12:27 Hematocrit 30.9 % (37-47) L 08/17/21 12:27 Hgb O2 Saturation 87.7 % (95-100) L 08/17/21 12:27 Carboxyhemoglobin 1.5 %THgb (0.4-20.1) 08/17/21 12:27 Methemoglobin 0.4 % (0.4-1.5) 08/17/21 12:27 Total Hemoglobin 10.1 g/dL (12-16) L 08/17/21 12:27 Sodium 140.0 mmol/L (131-143) 08/17/21 12:27 Potassium 4.6 mmol/L (3.5-5.0) 08/17/21 12:27 Glucose 101.0 mg/dL (70-115) 08/17/21 12:27 Ionized Calcium 1.2 mmol/L (1.1-1.4) 08/17/21 12:27 O2 Delivery Device Nc 08/17/21 12:27 O2 Liters/Min 4.0 % 08/17/21 12:27 FiO2 36.0 % 08/17/21 12:27 Card Punching Machine Operator ID [id number] 08/17/21 12:27 Sodium 139 mmol/L (136-145) 08/21/21 04:45 Potassium 4.5 mmol/L (3.5-5.1) 08/21/21 04:45 Chloride 98 mmol/L (98-107) 08/21/21 04:45 Carbon Dioxide 33 mmol/L (22-29) H 08/21/21 04:45 Anion Gap 12.5 (5-19) 08/21/21 04:45 BUN 29 mg/dL (8-23) H 08/21/21 04:45 Creatinine 0.8 mg/dL (0.5-0.9) 08/21/21 04:45 GFR Calculation Not Reportable 08/21/21 04:45 Glucose 234 mg/dL (65-115) H 08/21/21 04:45 POC Glucose 267 mg/dL (70-110) H 08/21/21 11:04 Calculated Osmolality 301 mOsm/kg (285-295) H 08/21/21 04:45 Calcium 8.8 mg/dL (8.5-10.5) 08/21/21 04:45 Total Bilirubin 0.2 mg/dL (0.15-1.2) 08/20/21 04:09 AST 7 U/L (0-32) 08/20/21 04:09 ALT 7 U/L (0-33) 08/20/21 04:09 Alkaline Phosphatase 73 IU/L (35-105) 08/20/21 04:09 Troponin T Baseline 16 ng/L (0-10) H 08/17/21 15:24 Troponin T 120 Minute 14.17 ng/L (0-10) H 08/17/21 17:17 Delta Troponin T -1.83 ABS# (0-10) L 08/17/21 17:17 Troponin T Hi Sens 6Hr 12.58 ng/L (0-10) H 08/17/21 21:36 Troponin T Hi Sens 6Hr Delta -3.42 ng/L (0-12) L 08/17/21 21:36 NT-Pro-B Natriuret Pep 1621 pg/mL (0-450) H 08/17/21 15:24 Total Protein 6.5 g/dL (6.6-8.7) L 08/20/21 04:09 Albumin 4.0 g/dL (3.5-5.2) 08/20/21 04:09 Globulin 2.5 g/dL (1.3-4.6) 08/20/21 04:09 Coronavirus 229E (PCR) Not detected (NOT DETECT) 08/17/21 18:58 SARS-CoV-2 (PCR) Not detected (NOT DETECT) 08/17/21 18:58 Vitals Last Vital Signs Temp 97.8 F 08/21/21 11:32 Pulse 73 08/21/21 14:39 Resp 17 08/21/21 14:34 BP 154/86 08/21/21 11:32 Pulse Ox 95 08/21/21 14:34 Discharge Plan Discharge Patient Disposition: Home Condition: Stable Prescriptions: New levofloxacin 750 mg tablet 750 mg PO Q24H 3 Days Qty: 3 0RF prednisone 20 mg tablet See Rx Instructions .ROUTE .COMPLEX 7 Days Qty: 8 0RF Rx Instructions: 1 tab for 3 days, then 1/2 tab for 4 days. amlodipine 5 mg tablet 5 mg PO DAILY Qty: 30 3RF Continued zolpidem 10 mg tablet 10 mg PO BEDTIME PRN (Reason: Insomnia) 0RF lansoprazole 30 mg capsule,delayed release(DR/EC) 30 mg PO DAILY 0RF gabapentin 600 mg tablet 600 mg PO TID 0RF metoprolol tartrate 50 mg tablet 50 mg PO BID 0RF bupropion HCl [Wellbutrin SR] 150 mg tablet sustained-release 12 hr 150 mg PO BID 0RF atorvastatin 40 mg tablet 40 mg PO DAILY 0RF furosemide [Lasix] 40 mg tablet 40 mg PO DAILY 0RF albuterol sulfate [ProAir HFA] 90 mcg/actuation HFA aerosol inhaler 1 inh INHALATION QID PRN (Reason: Shortness Of Breath) 0RF folic acid 1 mg Tablet 1 mg PO DAILY 0RF memantine 10 mg Tablet 10 mg PO DAILY 0RF Changed metformin 500 mg tablet 1,000 mg PO BID Qty: 90 0RF Discontinued lisinopril 40 mg tablet 40 mg PO DAILY 0RF potassium chloride [Klor-Con M10] 10 mEq tablet,ER particles/crystals 10 meq PO DAILY 0RF celecoxib [Celebrex] 200 mg capsule 200 mg PO DAILY 0RF Discharge Orders: Discharge Order (Routine); Ordered 08/21/21 Ordered By: Jon Hilario Other Ambulatory Orders: DME: Oxygen (Order) Location: None Selected Ordered By: Jon Hilario Referrals: HANSEL Easton, CIRCUS TRAIN SUPERVISOR [Primary Care Provider] - 08/29/21 10:00 am Discharge Diet: Cardiac and Diabetic Discharge Activity: Increase activity as tolerated, As per PT/OT instructions, Oxygen as instructed and Cpap/Bipap as instructed Patient Instructions: Prednisone (By mouth), Amlodipine (By mouth), Levofloxacin (By mouth), COPD (Chronic Obstructive Pulmonary Disease) (GEN), Community Acquired Pneumonia (GEN), CHF Stoplight, COPD Stoplight Activity Restrictions/Additional Instructions: Please use incentive spirometer. Complete antibiotic course and steroid taper for pneumonia and COPD exacerbation. Please follow-up with your primary doctor for reassessment. After you recover from pneumonia and COPD exacerbation due to prior episode of chest pressure, please discuss with your family doctor referral for additional assessment with stress test. Is your potassium level was elevated when you initially came to the hospital, please do not restart your potassium supplementation. Please have your primary doctor recheck your potassium level. Due to this similarly please also hold lisinopril for now until your primary doctor can reassess your potassium level, renal function, and resume lisinopril then if safe. Amlodipine is added for now while lisinopril was held. Please maintain consistent carbohydrate diet. Your glucose elevation is anticipated to improve with weaning off of steroids. For now your metformin dose is increased to 1000 mg twice daily. Please have your primary doctor follow-up your glucose. In case of worsening in your breathing, high fevers, persistent chest pain or pressure, or other concerning symptoms, please seek medical attention. Discharge Attestations Time Spent in Discharge Care*: greater than 30 min Quality Metrics Clinical Quality Measures [ No reported AMI, CVA or VTE this stay] Coding Level of Care Code Acute g FW IL note Diagnoses Respiratory failure with hypoxia and hypercapnia J96.91; J96.92 CAP (community acquired pneumonia) J18.9 Respiratory acidosis E87.2 CHF (congestive heart failure) I50.9 Chest heaviness R07.89 DONAVAN (obstructive sleep apnea) G47.33
== END 2021-08-21 17:11 | disposition home or self-care (01) | DRG 189 ==
LOC: ER 13:05 → MEDSURG 19:41
PROVIDERS: Admitting Provider Internal Medicine; Emergency Provider Family Medicine; PCP Nurse Practitioner Family; Visit Provider Internal Medicine
DX: J96.02 Acute respiratory failure with hypercapnia (principal); J44.1 Chronic obstructive pulmonary disease with (acute) exacerbation; J44.0 Chronic obstructive pulmonary disease with (acute) lower respiratory infection; E87.2 Acidosis; J96.01 Acute respiratory failure with hypoxia; F41.9 Anxiety disorder, unspecified; F32.A Depression, unspecified; E11.9 Type 2 diabetes mellitus without complications; E78.5 Hyperlipidemia, unspecified; Z99.81 Dependence on supplemental oxygen; G47.33 Obstructive sleep apnea (adult) (pediatric); Z99.89 Dependence on other enabling machines and devices; I50.9 Heart failure, unspecified; E87.5 Hyperkalemia; I25.10 Atherosclerotic heart disease of native coronary artery without angina pectoris; Z95.5 Presence of coronary angioplasty implant and graft; B95.62 Methicillin resistant Staphylococcus aureus infection as the cause of diseases classified elsewhere; Z79.51 Long term (current) use of inhaled steroids
CPT/HCPCS: 36415; 36416; 36600; 71045; 80048; 80051; 80053; 82330; 82805; 82962; 83880; 84484; 85025; 86403; 87449; 87635; 87641; 93005; 94640; 94660; 94664; 94762; 96372; 96374; 96375; 97116; 97161; 97530; 99291; C8929; J0360; J1650; J1815; J1940; J1956; J2920; J2930